=== PATIENT | female | born 1955 | race African-American/Black ===

== ENCOUNTER 2017-11-07 05:56 | Day surgery (SDC) | payer MEDICAID ==
[~2017-11-07] VITALS: Ht 157.5 cm; Wt 52.5 kg
[2017-11-07] MEDS ORDERED: SODIUM CHLORIDE 0.9% 1,000 ML IV ONE ×2 (06:19→07:30)
[2017-11-07] MEDS ORDERED: BACL10TA PO (06:41)
[2017-11-07] MEDS ORDERED: OXYC5CAP19 PO (06:41)
[2017-11-07] MEDS ORDERED: CARV6 PO (06:41)
[2017-11-07] MEDS ORDERED: IBUP-2070 PO (06:41)
[2017-11-07] MEDS ORDERED: DIPH25CA48 PO (06:41)
[2017-11-07] MEDS ORDERED: NAPR-58 PO (06:41)
[2017-11-07] MEDS ORDERED: CALC-1085 PO (06:41)
[2017-11-07] MEDS ORDERED: FentaNYL CITRATE-PF 100 MCG/2 ML VIAL ONE (07:36)
[2017-11-07] MEDS ORDERED: MIDAZOLAM HCL 5 MG/ML VIAL ONE (07:36)
[2017-11-07] MEDS ORDERED: NALOXONE HCL 1 MG/ML 2 ML SYG IVP PRN (09:00)
== END 2017-11-07 09:45 | disposition home or self-care (01) ==
LOC: SURGERY 05:56
PROVIDERS: ATTEND Internal Medicine Gastroenterology
DX: R19.4 Change in bowel habit (principal); F32.9 Major depressive disorder, single episode, unspecified; G47.00 Insomnia, unspecified; F41.9 Anxiety disorder, unspecified; Z85.3 Personal history of malignant neoplasm of breast; Z88.6 Allergy status to analgesic agent; Z90.13 Acquired absence of bilateral breasts and nipples; Z80.0 Family history of malignant neoplasm of digestive organs
CPT/HCPCS: 45378; J7030; J2250; J3010

== ENCOUNTER 2017-12-18 12:35 | Emergency (ER) | payer MEDICAID ==
[~2017-12-18] VITALS: Ht 157.5 cm; Wt 50.5 kg
[~2017-12-18 12:35] MED LIST: BACL10TA PO; CALC-1085 PO; CARV6 PO; DIPH25CA48 PO; IBUP-2070 PO; NAPR-58 PO; OXYC5CAP19 PO
[2017-12-18 13:25] LABS: BASOPHILS # (AUTO) 0.08 K/uL (0.00-0.20); BASOPHILS % (AUTO) 1.7 % (0.0-2.0); EOSINOPHILS # (AUTO) 0.22 K/uL (0.00-0.70); EOSINOPHILS % (AUTO) 4.49 % (1.0-6.0); HEMATOCRIT 41.7 % (36-46); HEMOGLOBIN 14.1 g/dL (12.0-16.0); LYMPHOCYTES # (AUTO) 1.8 K/uL (1.0-4.8); LYMPHOCYTES % (AUTO) 35.9 % (22.0-44.0); MEAN CORPUSCULAR HEMOGLOBIN 30.8 pg (26.0-34.0); MEAN CORPUSCULAR HGB CONC 33.8 G/dL (31.0-37.0); MEAN CORPUSCULAR VOLUME 91 fL (80-100); MONOCYTES # (AUTO) 0.3 K/uL (0.1-1.0); MONOCYTES % (AUTO) 6.2 % (2.0-9.0); NEUTROPHILS # (AUTO) 2.5 K/uL (1.8-7.7); NEUTROPHILS % (AUTO) 51.7 % (40.0-70.0); PLATELET COUNT (AUTO) 185 K/uL (150-450); RED BLOOD CELL COUNT(AUTO) 4.58 MIL/uL (4.00-5.20); RED CELL DISTRIBUTION WIDTH 13.4 % (11.5-14.5)
[2017-12-18 13:48] LABS: ANION GAP 2 mmol/L (8-16); CARBON DIOXIDE 34 mmol/L (22-29); CHLORIDE 105 mmol/L (98-107); CREATININE 0.87 mg/dL (0.60-1.30); GLOMERULAR FILTR. RATE CALC > 60 mL/min (>60); GLUCOSE,RANDOM 85 mg/dL (70-110); POTASSIUM 3.9 mmol/L (3.5-5.1); SODIUM SERUM 141 mmol/L (136-145); UREA NITROGEN, BLOOD 13 mg/dL (7-18)
[2017-12-18 13:54] LABS: ALANINE AMINOTRANSFERASE 23 U/L (12-78); ALBUMIN 3.8 g/dL (3.4-5.0); ALKALINE PHOSPHATASE 46 U/L (46-116); ASPARTATE AMINOTRANSFERASE 14 U/L (15-37); BILIRUBIN,TOTAL 0.7 mg/dL (0.1-1.0); TOTAL PROTEIN, SERUM 7.3 g/dL (6.4-8.2)
[2017-12-18] MEDS ORDERED: IBUPROFEN 800 MG TABLET PO ONE (15:15)
[2017-12-18 18:30] VITALS: BP 122/68
== END 2017-12-18 18:36 | disposition home or self-care (01) ==
LOC: EMS 12:37
DX: R07.9 Chest pain, unspecified (principal); R00.2 Palpitations; M79.1 Myalgia; G43.909 Migraine, unspecified, not intractable, without status migrainosus; Z88.6 Allergy status to analgesic agent; Z88.5 Allergy status to narcotic agent
CPT/HCPCS: 93005; 99285

== ENCOUNTER 2019-04-07 11:26 | Emergency (ER) | payer MEDICARE, MEDICAID ==
[~2019-04-07] VITALS: Ht 154.9 cm; Wt 51.4 kg
[2019-04-07] MEDS ORDERED: KETOROLAC TROMETHAMINE 60 MG/2 ML VIAL IM ONE (13:00)
[2019-04-07] MEDS ORDERED: METHOCARBAMOL 500 MG TABLET PO ONE (13:00)
[2019-04-07 13:50] VITALS: BP 145/76
== END 2019-04-07 13:52 | disposition home or self-care (01) ==
LOC: EMS 11:27
DX: G89.29 Other chronic pain (principal); M54.5 Low back pain; R03.0 Elevated blood-pressure reading, without diagnosis of hypertension; G43.909 Migraine, unspecified, not intractable, without status migrainosus; F41.9 Anxiety disorder, unspecified; Z85.3 Personal history of malignant neoplasm of breast; Z90.13 Acquired absence of bilateral breasts and nipples; Z79.899 Other long term (current) drug therapy; Z88.8 Allergy status to other drugs, medicaments and biological substances; Z88.5 Allergy status to narcotic agent; Z88.6 Allergy status to analgesic agent
CPT/HCPCS: 96372; 99283; J1885